=== PATIENT | male | born 2000 | race Caucasian/White ===

== ENCOUNTER → 2019-03-23 | Outpatient (CLI) | payer BC ==
[~2019-03-23] MED LIST: CEPHALEXIN250 M1 PO; METFORMIN HCL500 M1 PO; NO HOME MEDICATIONS
== END ==
LOC: COL.RAD 09:42
DX: R19.09 Other intra-abdominal and pelvic swelling, mass and lump (principal)

== ENCOUNTER 2020-09-18 08:05 | Day surgery (SDC) | payer BC ==
[~2020-09-18] VITALS: Ht 188 cm; Wt 185.6 kg
[2020-09-18 10:47] VITALS: BP 136/83; PULSE 108; TEMP 98.3
[2020-09-18 11:18] VITALS: BP 134/79; PULSE 96; TEMP 97.9
[2020-09-18 11:30] VITALS: BP 116/70; PULSE 92
[2020-09-18 11:45] VITALS: BP 110/75; PULSE 87
[2020-09-18 12:00] VITALS: BP 104/71; PULSE 90
--- NOTE | 2020-09-18 12:30 | NUR ---
PT RETURNED FROM PROCEDURE ROOM ALERT AND SLEEPY. LUNGS CLEAR, HRR, BOWEL SOUNDS HYPOACTIVE. PT STATED HAVING TO VOID. UP TO VOID WITHOUT DIFFICULTY. REQUESTED WATER, TOLERATING WATER AND STATED WANTING TO EAT CHIK-FILET AFTER DISCHARGE. DENIES NAUSEA, VOMITING OR PAIN AT THIS TIME. WILL CONT TO MONITOR.
--- NOTE | 2020-09-18 12:37 | NUR ---
PT TOLERATING WATER WITHOUT DIFFICUTLY. DENIES PAIN, NAUSEA AT THIS TIME. #22 DC'D TO RIGHT AC, TOLERATED WELL. DC INSTRUCTIONS GIVEN, PT VOICES UNDERSTANDING. PT DC'D TO MOM'S VEHICLE, SingleHop.
== END 2020-09-18 12:42 | disposition home or self-care (01) ==
LOC: SDCO 08:05
DX: K59.00 Constipation, unspecified (principal); R19.7 Diarrhea, unspecified; R93.3 Abnormal findings on diagnostic imaging of other parts of digestive tract
CPT/HCPCS: J7030

== ENCOUNTER 2021-06-08 08:16 | Emergency (ER) | payer SELFPAY ==
[~2021-06-08] VITALS: Ht 188 cm; Wt 183.2 kg
[2021-06-08 08:24] VITALS: BP 145/81; TEMP 98.3
[2021-06-08] MEDS ORDERED: CLEOCIN HCL300 MG PO (08:29)
[2021-06-08 08:34] VITALS: PULSE 106
== END 2021-06-08 08:34 | disposition home or self-care (01) ==
LOC: COL.ER 08:16
DX: L03.115 Cellulitis of right lower limb (principal)